=== PATIENT | female | born 1960 | race Two or more races ===

== ENCOUNTER 2016-10-25 19:29 | Emergency (ER) | payer OTHER ==
[2016-10-25] MEDS ORDERED: HYDROcodone/ACETAMIN 5-325 MG* 1 TAB PO ONE (20:55)
--- NOTE | 2016-10-25 21:08 | ED ---
Throat Pain/Nasal Congestion - HPI Summary HPI Summary: Pt here w/ Lt sided otalgia. Started yesterday - worse today. Was in the windy weather and thinks this may have triggered her pain. Denies trauma or URI sx ( ie. sneezing, coughing, fever, chills, ST, sinus pain/pressure, rhinorrhea, nasal congestion). Denies jaw pain or trauma to ear, head, face, jaw. No known h /o TMJ and does not believe she grinds her teeth at night. Has not put anything into her ear to itch nor clean it. Denies dental pain, trouble swallowing. Ear pain is worse w/ touching and opening jaw completely. Denies otorrhea. Tried 3 advil which took the edge off but is worried about sleeping tonight d/t pain. - History of Current Complaint Chief Complaint: EDEarPain Time Seen by Provider: 10/25/16 19:56 Hx Obtained From: Patient - speaks Algerian, Family/Flaking Roll Operator - family member, Anya, yolanda - Allergies/Home Medications Allergies/Adverse Reactions: Allergies Allergy/AdvReac Type Severity Reaction Status Date / Time No Known Allergies Allergy Verified 10/25/16 19:41 PMH/Surg Hx/FS Hx/Imm Hx Previously Healthy: Yes Cardiovascular History: Reports: Hx Hypertension - takes lisinopril Respiratory History: Denies: Hx Seasonal Allergies Musculoskeletal History: Denies: Hx Osteoporosis - Cancer History Hx Chemotherapy: Yes Hx Radiation Therapy: Yes Infectious Disease History: No Infectious Disease History: Denies: Traveled Outside the [place] in Last 30 Days - Social History 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 Negative: Dental Pain, Sore Throat, Nasal Discharge Negative: Chest Pain Negative: Shortness Of Breath, Cough Negative: Abdominal Pain, Vomiting, Diarrhea, Nausea Positive: no symptoms reported Musculoskeletal: Other - see HPI Negative: Rash, Bruising Negative: Headache, Weakness, Paresthesia, Numbness Psychological: Normal - concerned All Other Systems Reviewed And Are Negative: Yes Physical Exam Triage Information Reviewed: Yes Vital Signs On Initial Exam: Initial Vitals Temp Pulse Resp BP Pulse Ox 98.9 F 86 20 153/86 99 10/25/16 19:40 10/25/16 19:40 10/25/16 19:40 10/25/16 19:40 10/25/16 19:40 Vital Signs Reviewed: Yes Appearance: Positive: Well-Appearing, No Pain Distress, Well-Nourished Skin: Positive: Warm, Dry - no erythema, no ecchymosis, no lesions Head/Face: Positive: Normal Head/Face Inspection - sinuses NTTP Eyes: Positive: Normal, EOMI, Conjunctiva Clear. Negative: Conjunctiva Inflammed, Discharge ENT: Positive: Hearing grossly normal, Pharynx normal, Nasal congestion - subtle , Other - Rt EAC and TM clear - Lt EAC w/ mild erythema/edema compared to Rt - TM w/ very mild injection of overlying ossicles - no hyperemia, no d/c, no air/ fluid level - tragus is TTP and ear pain is worse w/ mandibular depression - no overlying erythema although family member (Anya) thinks pt has some swelling here - no clicking appreciated upon palpation. Negative: Nasal drainage, Tonsillar swelling, Tonsillar exudate, Trismus, Muffled/hoarse voice, Dental tenderness Dental: Negative: Percussion Tenderness @ Neck: Positive: Supple, No Lymphadenopathy, Tenderness @ - palaption of Lt side of neck triggers Lt ear pain Respiratory/Lung Sounds: Positive: Clear to Auscultation, Breath Sounds Present Cardiovascular: Positive: Normal, RRR, S1, S2. Negative: Murmur, Rub Musculoskeletal: Positive: Normal, Strength/ROM Intact Neurological: Positive: Normal, Sensory/Motor Intact, Alert, Oriented to Person Place, Time, CN Intact II-III Psychiatric: Positive: Normal Diagnostics - Vital Signs Vital Signs Temp Pulse Resp BP Pulse Ox 10/25/16 19:40 98.9 F 86 20 153/86 99 - Laboratory Lab Statement: Any lab studies that have been ordered have been reviewed, and results considered in the medical decision making process. EENT Course/Dx - Course Course Of Treatment: Lt TM and EAC appear mildly irritated - cause unknown however pt does have a subtle nasal congestion - suspect she may have some eustachian tube dysfunction as a result. She could also have some TMJ contributing to swelling/congestion. Discussed course of action w/ conservative care first and if sx do not improve, may advance to anbx. Follow-up with PCP this week. Reviewed danger s/sx of when to return to ED. Pt and pt's family Anya agree w/ plan. - Diagnoses Provider Diagnoses: Otalgia of left ear Discharge - Discharge Plan Condition: Stable Disposition: HOME Prescriptions: Amoxicillin/Clavulanate TAB* [Augmentin TAB 875*] 875 mg PO BID #20 tab Patient Education Materials: Earache (ED) Referrals: Alcira Chambers MD [Primary Care Provider] - Additional Instructions: Your Left ear appears irritated. The cause is unknown however you do seem to have a level of upper nasal congestion that may be contributing to eustachian tube dysfunction, a problem with the tube that drains fluid from your ear. If this persists, you may develop an ear infection. You may try saline nasal spray , Afrin nasal spray, salt water throat gargles, humidification, tylenol 650mg and warm compress to help reduce pain and help ear to drain. If this does not improve your ear pain, start antibiotics and follow-up with your PCP. *If you develop headache, fever, chills, difficulty swallowing, balance issues, change in vision, return to ED
[2016-10-25 21:23] VITALS: BP 141/94
== END 2016-10-25 21:22 | disposition home or self-care (01) ==
LOC: ED 19:29
DX: H92.02 Otalgia, left ear (principal); H92.09 Otalgia, unspecified ear
CPT/HCPCS: 99282

== ENCOUNTER 2017-05-01 22:34 | Emergency (ER) | payer OTHER ==
[2017-05-01 22:41] VITALS: BP 173/102
[2017-05-01] MEDS ORDERED: Sulfamethox/Trimethoprim DS 800/160* TAB PO ONE (23:49)
[2017-05-01] MEDS ORDERED: HYDROcodone/ACETAMIN 5-325 MG* 1 TAB PO ONE (23:49)
--- NOTE | 2017-05-01 23:56 | ED ---
Skin Complaint - HPI Summary HPI Summary: Pt here w/ Rt axillary redness, swelling and pain - pt believes she has an infection here as she's had this in the past dx'd in [facility] (staph but not sure which kind). Has had it drained in the past - no records of cx here. She has had this for a few days now - worse. Denies fever, chills but had nausea earlier today - not sure of this was a systemic effect from wound or simply from pain. Tried advil w/o relief. Imms are UTD. H/o having this infection in other areas of her body - most recently had 2 sores on her face that drained purulent material. Was told since she had chemotherapy for breast cancer, her immune system is suppressed. Feels well otherwise. No recent exposures to others w/ illness/wounds/etc. - History of Current Complaint Chief Complaint: EDRashSkinAbscess Time Seen by Provider: 05/01/17 23:33 Stated Complaint: RT UNDERARM PAIN Hx Obtained From: Patient, Family/Hand Singer - family member who translates Pain Intensity: 8 - Allergy/Home Medications Allergies/Adverse Reactions: Allergies Allergy/AdvReac Type Severity Reaction Status Date / Time No Known Allergies Allergy Verified 05/01/17 22:59 Home Medications: Home Medications Albuterol HFA INHALER* [Ventolin HFA Inhaler*] 1 puff INH Q4H PRN 05/01/17 [ History Confirmed 05/01/17] Lisinopril [Zestril 20 MG-] 20 mg PO DAILY 05/01/17 [History Confirmed 05/01/17] PMH/Surg Hx/FS Hx/Imm Hx Previously Healthy: Yes Cardiovascular History: Reports: Hx Hypertension - takes lisinopril Respiratory History: Reports: Hx Asthma Denies: Hx Seasonal Allergies Musculoskeletal History: Denies: Hx Osteoporosis - Cancer History Cancer Type, Location and Year: breast cancer - Lt side - surgically extracted ( details unknown) Hx Chemotherapy: Yes Hx Radiation Therapy: Yes - Immunization History Date of Tetanus Vaccine: unk Date of Influenza Vaccine: none Immunizations Up to Date: Yes - had them in [facility] Infectious Disease History: Yes Infectious Disease History: Reports: 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"- not sure which kind - dx'd in [facility] Denies: Traveled Outside the [place] in Last 30 Days - Social History 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 Lives: With Family Alcohol Use: None Hx Substance Use: No Substance Use Type: Reports: None Hx Tobacco Use: No Smoking Status (MU): Never Smoked Tobacco Review of Systems Constitutional: Negative Negative: Fever, Chills, Fatigue Negative: Chest Pain Gastrointestinal: Other - see HPI Positive: no symptoms reported Musculoskeletal: Negative Skin: Other - see HPI Neurological: Negative All Other Systems Reviewed And Are Negative: Yes Physical Exam Triage Information Reviewed: Yes Vital Signs On Initial Exam: Initial Vitals Temp Pulse Resp BP Pulse Ox 98 F 92 16 173/102 100 05/01/17 22:39 05/01/17 22:39 05/01/17 22:39 05/01/17 22:39 05/01/17 22:39 Vital Signs Reviewed: Yes Appearance: Positive: Well-Appearing, No Pain Distress, Well-Nourished Skin: Positive: Warm, Dry - focal area of firm erythema with central head/scab in Rt axilla with perpheral erythema of wire mill rover color - TTP - no fluctuance, no drainage. No other lesions on body Head/Face: Positive: Normal Head/Face Inspection Eyes: Positive: EOMI ENT: Positive: Hearing grossly normal Respiratory/Lung Sounds: Positive: Breath Sounds Present Cardiovascular: Positive: Normal Musculoskeletal: Positive: Normal, Strength/ROM Intact Neurological: Positive: Normal, Sensory/Motor Intact, Alert, Oriented to Person Place, Time, CN Intact II-III Psychiatric: Positive: Normal - [place] Coma Scale Coma Scale Total: 15 Procedures - Incision and Drainage Site: Rt axilla Anesthesia: Local, Lidocaine Instrument(s): Scalpel - #11 - 1cc purulent drainage Packing: Gauze Diagnostics - Vital Signs Vital Signs Temp Pulse Resp BP Pulse Ox 05/01/17 22:39 98 F 92 16 173/102 100 - Laboratory Lab Statement: Any lab studies that have been ordered have been reviewed, and results considered in the medical decision making process. Re-Evaluation - Re-Evaluation First Eval Change: Improved - s/p heat and norco Course/Dx - Diagnoses Provider Diagnoses: Abscess of right axilla Discharge - Discharge Plan Condition: Stable Disposition: HOME Prescriptions: HYDROcodone/ACETAMIN 5-325 MG* [Correll 5-325 TAB*] 1 tab PO Q6H PRN #12 tab MDD 4 PRN Reason: Pain Ibuprofen TAB* [Motrin TAB* 600 MG] 600 mg PO Q6H PRN #20 tab PRN Reason: Pain Sulfamethox/Trimethoprim DS* [Bactrim DS 800/160 TAB*] 1 tab PO BID #19 tab Patient Education Materials: Incision and Drainage (ED) Referrals: Alcira Chambers MD [Primary Care Provider] - Additional Instructions: Keep dressing in place until Wednesday - follow-up with PCP this day. If you cannot make an appointment then, remove dressing and remove packing. Gently wash with soap and water - rinse well and pat dry with clean cloth then cover with clean gauze and rewrap. You may use a heat pack to help with pain and draw infection out of wound. Take antibiotic as directed. Follow-up with PCP for results of drainage collection. You may take ibuprofen and norco for pain. *If you develop streaking, fever, chills, vomiting, return to ED
[2017-05-02] MEDS ORDERED: HYDROcodone/ACETAMIN 5-325 MG* 1 TAB PO ONE (01:57)
== END 2017-05-02 02:18 | disposition home or self-care (01) ==
LOC: ED 22:34
DX: L02.411 Cutaneous abscess of right axilla (principal)
CPT/HCPCS: 87070; 87077; 87186; 87205; 87640; 87641; 99282; A9270-GY

== ENCOUNTER 2018-01-09 22:50 | Observation (INO) | payer OTHER ==
[2018-01-09] MEDS ORDERED: NS 0.9% 1000 ML* 1,000 ML IV ONE (23:04)
[2018-01-09] MEDS ORDERED: Aspirin 81 mg CHEW TAB* 81 MG TAB.CHEW PO ONE (23:04)
[2018-01-09 23:37] LABS: ABS Basophils 0.1 10^3/ul (0-0.2); ABS Eosinophils 0.4 10^3/ul (0-0.6); ABS Lymphocytes 2.2 10^3/ul (1.0-4.8); ABS Monocytes 0.6 10^3/ul (0-0.8); ABS Nucleated RBC 0 10^3/ul; Eosinophil % 6.3 % (0-6); Hematocrit 41 % (35-47); Hemoglobin 13.8 g/dl (12.0-16.0); Mean Corpuscular HGB Conc 34 g/dl (31-36); Mean Corpuscular Hemoglobin 31 pg (27-31); Mean Corpuscular Volume 90 fL (80-97); Nucleated Red Blood Cells % 0; Platelet Count 200 10^3/ul (150-450); Red Blood Count 4.49 10^6/ul (4.0-5.4); Red Cell Distribution Width 13 % (10.5-15); White Blood Count 6.2 10^3/ul (3.5-10.8)
[2018-01-09 23:45] LABS: INR 0.9 (0.77-1.02)
[2018-01-09] MEDS ORDERED: Metoprolol Tartrate IV* 1 MG/ML 5 ML VIAL IV ONE (23:45)
[2018-01-09] MEDS ORDERED: Nitroglycerin 2% OINT* 1 GM PAK TOPICAL ONE (23:45)
[2018-01-09 23:48] LABS: EGFR Non-African American 51.6 (>60)
[2018-01-10] MEDS ORDERED: Ondansetron INJ* 2 MG/ML VIAL IV PRN (03:18)
[2018-01-10] MEDS ORDERED: Albuterol 2.5 MG/3 ML NEB.SOL* (0.083%) INH PRN (03:18)
[2018-01-10] MEDS ORDERED: Morphine INJ* 2 MG/ML 1 ML CARPUJECT IV PRN (03:18)
[2018-01-10] MEDS ORDERED: Acetaminophen TAB* 325 MG PO PRN (03:18)
--- NOTE | 2018-01-10 03:25 | HP ---
H&P (Free Text) History and Physical: PCP: Tara Chambers MD Oncology: Epifanio Nash MD Date/Time: 01/10/2018314 CC: chest pain HPI: Mrs Garcias is a 57YO Chilean speaking female HX HTN, asthma, & breast CA who presented with initially pressure-like becoming sharp L chest pain radiating to the L scapula associated with SOB, nausea, & sweating, but no palpitations or light-headedness. She denies F/C, cough, congestion, or change in bowel/bladder. She took an nitro tablet which improved her symptoms. She reports having a similar episode which was similarly relieved with nitro SL. She is currently symptom-free. PMedHx HTN asthma L breast CA Ambulatory Orders Nursing to reconcile. Albuterol HFA INHALER* [Ventolin HFA Inhaler*] 1 puff INH Q4H PRN 05/01/17 Lisinopril [Zestril 20 MG-] 20 mg PO DAILY 05/01/17 HYDROcodone/ACETAMIN 5-325 MG* [Pullman 5-325 TAB*] 1 tab PO Q6H PRN #12 tab MDD 4 05/02/17 Ibuprofen TAB* [Motrin TAB* 600 MG] 600 mg PO Q6H PRN #20 tab 05/02/17 Sulfamethox/Trimethoprim DS* [Bactrim DS 800/160 TAB*] 1 tab PO BID #19 tab Allergies No Known Allergies Allergy (Verified 01/09/18 22:58) PSurgHx L lumpectomy w/ axillary lymph-node dissection appendectomy SocHx: no tobacco, alcohol, or recreational drugs; , lives alone in an apartment; full code status FamHx: negative for early onset CAD/CVA/PVD ROS: as above, otherwise reviewed and all were negative vitals: Vital Signs Temp 37.0 C 01/10/18 05:00 Pulse 75 01/10/18 05:00 Resp 19 01/10/18 05:00 BP 104/67 01/10/18 05:00 Pulse Ox 96 01/10/18 05:00 Intake & Output 01/09/18 01/09/18 01/10/18 11:59 23:59 11:59 Intake Total 1000 Balance 1000 Weight 74 kg Intake: IV Fluids 1000 Oral 0 Other: # Bowel Movements 0 # Voids 800 Constitutional: NAD, normally developed, overweight female HEENM: atraumatic; sclera/conjunctiva: anicteric/clear; hearing: clinically intact; oropharynx: clear, moist Neck: soft tissue: non-tender; thyroid: normal Pulmonary: clear to auscultation bilaterally, good aeration, no accessory muscle use CV: RR/RR, normal S1S2, no carotid bruit, no jugular venous distention, 2+ B DP/ PT, no edema Abdominal: soft, non-distended, non-tender, no rebound/guarding/rigidity, normoactive bowel sounds, no hepatosplenomegaly or masses, no costovertebral angle tenderness Musculoskeletal: general: grossly intact, no tenderness w/ palpation Integumental: normal appearance and texture of exposed skin Psychiatric orientation: AA&O to PPS affect: calm mood: cooperative eye contact: good content: seemingly reliable responses: non-Yakut speaking, daughter translates insight: fair Testing: Lab Results 01/09/18 01/09/18 01/09/18 Range/Units 23:05 23:05 23:05 WBC (3.5-10.8) 10^3/ul RBC (4.0-5.4) 10^6/ul Hgb (12.0-16.0) g/dl Hct (35-47) % MCV (80-97) fL MCH (27-31) pg MCHC (31-36) g/dl RDW (10.5-15) % Plt Count (150-450) 10^3/ul MPV (7.4-10.4) um3 Neut % (Auto) (38-83) % Lymph % (Auto) (25-47) % Dent % (Auto) (0-7) % Eos % (Auto) (0-6) % Baso % (Auto) (0-2) % Absolute Neuts (auto) (1.5-7.7) 10^3/ul Absolute Lymphs (auto) (1.0-4.8) 10^3/ul Absolute Monos (auto) (0-0.8) 10^3/ul Absolute Eos (auto) (0-0.6) 10^3/ul Absolute Basos (auto) (0-0.2) 10^3/ul Absolute Nucleated RBC 10^3/ul Nucleated RBC % INR (Anticoag Therapy) (0.77-1.02) APTT (26.0-36.3) seconds Sodium 138 L (139-145) mmol/L Potassium 4.1 (3.5-5.0) mmol/L Chloride 108 (101-111) mmol/L Carbon Dioxide 22 (22-32) mmol/L Anion Gap 8 (2-11) mmol/L BUN 24 (6-24) mg/dL Creatinine 1.09 H (0.51-0.95) mg/dL Est GFR ( Amer) 66.3 (>60) Est GFR (Non-Af Amer) 51.6 (>60) BUN/Creatinine Ratio 22.0 H (8-20) Glucose 118 H (70-100) mg/dL Lactic Acid 1.1 (0.5-2.0) mmol/L Calcium 9.1 (8.6-10.3) mg/dL Total Bilirubin 0.60 (0.2-1.0) mg/dL AST 19 (13-39) U/L ALT 15 (7-52) U/L Alkaline Phosphatase 90 (34-104) U/L Troponin I 0.00 (<0.04) ng/mL B-Natriuretic Peptide 20 ( - 100) pg/mL Total Protein 7.0 (6.4-8.9) g/dL Albumin 4.0 (3.2-5.2) g/dL Globulin 3.0 (2-4) g/dL Albumin/Globulin Ratio 1.3 (1-3) 01/09/18 01/09/18 01/10/18 Range/Units 23:15 23:15 02:01 WBC 6.2 (3.5-10.8) 10^3/ul RBC 4.49 (4.0-5.4) 10^6/ul Hgb 13.8 (12.0-16.0) g/dl Hct 41 (35-47) % MCV 90 (80-97) fL MCH 31 (27-31) pg MCHC 34 (31-36) g/dl RDW 13 (10.5-15) % Plt Count 200 (150-450) 10^3/ul MPV 10.0 (7.4-10.4) um3 Neut % (Auto) 48.1 (38-83) % Lymph % (Auto) 35.0 (25-47) % Dent % (Auto) 9.5 H (0-7) % Eos % (Auto) 6.3 H (0-6) % Baso % (Auto) 1.1 (0-2) % Absolute Neuts (auto) 3.0 (1.5-7.7) 10^3/ul Absolute Lymphs (auto) 2.2 (1.0-4.8) 10^3/ul Absolute Monos (auto) 0.6 (0-0.8) 10^3/ul Absolute Eos (auto) 0.4 (0-0.6) 10^3/ul Absolute Basos (auto) 0.1 (0-0.2) 10^3/ul Absolute Nucleated RBC 0 10^3/ul Nucleated RBC % 0 INR (Anticoag Therapy) 0.90 (0.77-1.02) APTT (26.0-36.3) seconds Sodium (139-145) mmol/L Potassium (3.5-5.0) mmol/L Chloride (101-111) mmol/L Carbon Dioxide (22-32) mmol/L Anion Gap (2-11) mmol/L BUN (6-24) mg/dL Creatinine (0.51-0.95) mg/dL Est GFR ( Amer) (>60) Est GFR (Non-Af Amer) (>60) BUN/Creatinine Ratio (8-20) Glucose (70-100) mg/dL Lactic Acid (0.5-2.0) mmol/L Calcium (8.6-10.3) mg/dL Total Bilirubin (0.2-1.0) mg/dL AST (13-39) U/L ALT (7-52) U/L Alkaline Phosphatase (34-104) U/L Troponin I 0.00 (<0.04) ng/mL B-Natriuretic Peptide ( - 100) pg/mL Total Protein (6.4-8.9) g/dL Albumin (3.2-5.2) g/dL Globulin (2-4) g/dL Albumin/Globulin Ratio (1-3) 01/10/18 01/10/18 Range/Units 05:59 05:59 WBC (3.5-10.8) 10^3/ul RBC (4.0-5.4) 10^6/ul Hgb (12.0-16.0) g/dl Hct (35-47) % MCV (80-97) fL MCH (27-31) pg MCHC (31-36) g/dl RDW (10.5-15) % Plt Count (150-450) 10^3/ul MPV (7.4-10.4) um3 Neut % (Auto) (38-83) % Lymph % (Auto) (25-47) % Dent % (Auto) (0-7) % Eos % (Auto) (0-6) % Baso % (Auto) (0-2) % Absolute Neuts (auto) (1.5-7.7) 10^3/ul Absolute Lymphs (auto) (1.0-4.8) 10^3/ul Absolute Monos (auto) (0-0.8) 10^3/ul Absolute Eos (auto) (0-0.6) 10^3/ul Absolute Basos (auto) (0-0.2) 10^3/ul Absolute Nucleated RBC 10^3/ul Nucleated RBC % INR (Anticoag Therapy) (0.77-1.02) APTT 25.6 L (26.0-36.3) seconds Sodium 139 (139-145) mmol/L Potassium 4.0 (3.5-5.0) mmol/L Chloride 111 (101-111) mmol/L Carbon Dioxide 22 (22-32) mmol/L Anion Gap 6 (2-11) mmol/L BUN 19 (6-24) mg/dL Creatinine 0.84 (0.51-0.95) mg/dL Est GFR ( Amer) 89.6 (>60) Est GFR (Non-Af Amer) 69.6 (>60) BUN/Creatinine Ratio 22.6 H (8-20) Glucose 106 H (70-100) mg/dL Lactic Acid (0.5-2.0) mmol/L Calcium 8.9 (8.6-10.3) mg/dL Total Bilirubin (0.2-1.0) mg/dL AST (13-39) U/L ALT (7-52) U/L Alkaline Phosphatase (34-104) U/L Troponin I 0.00 (<0.04) ng/mL B-Natriuretic Peptide ( - 100) pg/mL Total Protein (6.4-8.9) g/dL Albumin (3.2-5.2) g/dL Globulin (2-4) g/dL Albumin/Globulin Ratio (1-3) ECG, personally reviewed: NSR rate 82, no ischemia CXR, personally reviewed: no acute process Impression: 57YO Chilean speaking female HX HTN, asthma, & breast CA presents with chest pain for r/o ACS DIAGNOSIS & PLAN Primary chest pain r/o ACS : telemetry : trend troponin : aspirin given in ED : exercise NST in AM : supplemental oxygen : supportive care Secondary HTN : review meds once reconciled asthma : albuterol PRN HX L breast CA : continue outpatient surveillance Admission Rational: observation for r/o ACS DVTp: heparin SQ Code Status: full HCP: daughter, Anya Landon
[2018-01-10] MEDS ORDERED: NS 0.9% 1000 ML* 1,000 ML IV SCH (03:30)
--- NOTE | 2018-01-10 04:32 | ED ---
Melchor Dia Nikita, scribed for Raffaele Herrera MD on 01/09/18 at 2344 . HPI Chest Pain - HPI Summary HPI Summary: This patient is a 57 year old F presenting to ED with a chief complaint of L- sided CP since a few hours ago. The CC is described as intermittent for the past week, sharp, and radiating to the top of the shoulder and slightly on the arm. The patient rates the pain 5/10 in severity. Symptoms aggravated by nothing. Symptoms alleviated slightly by 1 SL Nitro (a bit , rx given in [place]). Patient reports difficulty breathing (currently resolved). The patient had one episode previously in [facility]. - History of Current Complaint Chief Complaint: EDChestPainROMI Hx Obtained From: Patient Onset/Duration: Started Hours Ago, Resolved Timing: Intermittent, Lasting Weeks - the past week Initial Severity: Moderate Pain Intensity: 5 Pain Scale Used: 0-10 Numeric Chest Pain Radiates: Yes Chest Pain Radiates To:: Shoulder - back of shoulder, Arm - slightly Character: Sharp/Stabbing Aggravating Factor(s): Nothing Alleviating Factor(s): Other: - 1 SL Nitro (a bit , rx given in [facility]) Associated Signs and Symptoms: Positive: Other: - Patient reports difficulty breathing (currently resolved). - Allergy/Home Medications Allergies/Adverse Reactions: Allergies Allergy/AdvReac Type Severity Reaction Status Date / Time No Known Allergies Allergy Verified 01/09/18 22:58 PMH/Surg Hx/FS Hx/Imm Hx Cardiovascular History: Reports: Hx Hypertension - takes lisinopril, Hx Myocardial Infarction Respiratory History: Reports: Hx Asthma Denies: Hx Seasonal Allergies Musculoskeletal History: Denies: Hx Osteoporosis - Cancer History Cancer Type, Location and Year: breast cancer - Lt side - surgically extracted ( details unknown) Hx Chemotherapy: Yes Hx Radiation Therapy: Yes - Immunization History Date of Tetanus Vaccine: unk Date of Influenza Vaccine: none Infectious Disease History: No Infectious Disease History: Reports: 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 - Social History Alcohol Use: None Hx Substance Use: No Substance Use Type: Reports: None Hx Tobacco Use: No Smoking Status (MU): Never Smoked Tobacco Review of Systems Positive: Chest Pain - mittent for the past week, sharp, and radiating to the top of the shoulder and slightly on the arm Positive: Other - difficulty breathing (currently resolved) All Other Systems Reviewed And Are Negative: Yes Physical Exam - Summary Physical Exam Summary: Appearance: Well appearing, no pain distress Skin: warm, dry, reflects adequate perfusion, surgical scars on both breasts and axial Head/face: normal Eyes: EOMI, OSCAR ENT: normal Neck: supple, non-tender, no JVD Respiratory: CTA, breath sounds present Cardiovascular: RRR, pulses symmetrical Abdomen: non-tender, soft Bowel Sounds: present Musculoskeletal: Normal, strength/ROM intact, no lower extremity edema Neuro: normal, sensory motor intact, A&Ox3 Triage Information Reviewed: Yes Vital Signs On Initial Exam: Initial Vitals Temp Pulse Resp BP Pulse Ox 97.3 F 82 16 144/86 97 01/09/18 22:56 01/09/18 22:56 01/09/18 22:56 01/09/18 22:56 01/09/18 22:56 Vital Signs Reviewed: Yes Diagnostics - Vital Signs Vital Signs Temp Pulse Resp BP Pulse Ox 01/09/18 22:56 97.3 F 82 16 144/86 97 - Laboratory Lab Results: Lab Results 01/09/18 01/09/18 01/09/18 Range/Units 23:05 23:05 23:05 WBC (3.5-10.8) 10^3/ul RBC (4.0-5.4) 10^6/ul Hgb (12.0-16.0) g/dl Hct (35-47) % MCV (80-97) fL MCH (27-31) pg MCHC (31-36) g/dl RDW (10.5-15) % Plt Count (150-450) 10^3/ul MPV (7.4-10.4) um3 Neut % (Auto) (38-83) % Lymph % (Auto) (25-47) % Erie % (Auto) (0-7) % Eos % (Auto) (0-6) % Baso % (Auto) (0-2) % Absolute Neuts (auto) (1.5-7.7) 10^3/ul Absolute Lymphs (auto) (1.0-4.8) 10^3/ul Absolute Monos (auto) (0-0.8) 10^3/ul Absolute Eos (auto) (0-0.6) 10^3/ul Absolute Basos (auto) (0-0.2) 10^3/ul Absolute Nucleated RBC 10^3/ul Nucleated RBC % INR (Anticoag Therapy) (0.77-1.02) Sodium 138 L (139-145) mmol/L Potassium 4.1 (3.5-5.0) mmol/L Chloride 108 (101-111) mmol/L Carbon Dioxide 22 (22-32) mmol/L Anion Gap 8 (2-11) mmol/L BUN 24 (6-24) mg/dL Creatinine 1.09 H (0.51-0.95) mg/dL Est GFR ( Amer) 66.3 (>60) Est GFR (Non-Af Amer) 51.6 (>60) BUN/Creatinine Ratio 22.0 H (8-20) Glucose 118 H (70-100) mg/dL Lactic Acid 1.1 (0.5-2.0) mmol/L Calcium 9.1 (8.6-10.3) mg/dL Total Bilirubin 0.60 (0.2-1.0) mg/dL AST 19 (13-39) U/L ALT 15 (7-52) U/L Alkaline Phosphatase 90 (34-104) U/L Troponin I 0.00 (<0.04) ng/mL B-Natriuretic Peptide 20 ( - 100) pg/mL Total Protein 7.0 (6.4-8.9) g/dL Albumin 4.0 (3.2-5.2) g/dL Globulin 3.0 (2-4) g/dL Albumin/Globulin Ratio 1.3 (1-3) 01/09/18 01/09/18 01/10/18 Range/Units 23:15 23:15 02:01 WBC 6.2 (3.5-10.8) 10^3/ul RBC 4.49 (4.0-5.4) 10^6/ul Hgb 13.8 (12.0-16.0) g/dl Hct 41 (35-47) % MCV 90 (80-97) fL MCH 31 (27-31) pg MCHC 34 (31-36) g/dl RDW 13 (10.5-15) % Plt Count 200 (150-450) 10^3/ul MPV 10.0 (7.4-10.4) um3 Neut % (Auto) 48.1 (38-83) % Lymph % (Auto) 35.0 (25-47) % Erie % (Auto) 9.5 H (0-7) % Eos % (Auto) 6.3 H (0-6) % Baso % (Auto) 1.1 (0-2) % Absolute Neuts (auto) 3.0 (1.5-7.7) 10^3/ul Absolute Lymphs (auto) 2.2 (1.0-4.8) 10^3/ul Absolute Monos (auto) 0.6 (0-0.8) 10^3/ul Absolute Eos (auto) 0.4 (0-0.6) 10^3/ul Absolute Basos (auto) 0.1 (0-0.2) 10^3/ul Absolute Nucleated RBC 0 10^3/ul Nucleated RBC % 0 INR (Anticoag Therapy) 0.90 (0.77-1.02) Sodium (139-145) mmol/L Potassium (3.5-5.0) mmol/L Chloride (101-111) mmol/L Carbon Dioxide (22-32) mmol/L Anion Gap (2-11) mmol/L BUN (6-24) mg/dL Creatinine (0.51-0.95) mg/dL Est GFR ( Amer) (>60) Est GFR (Non-Af Amer) (>60) BUN/Creatinine Ratio (8-20) Glucose (70-100) mg/dL Lactic Acid (0.5-2.0) mmol/L Calcium (8.6-10.3) mg/dL Total Bilirubin (0.2-1.0) mg/dL AST (13-39) U/L ALT (7-52) U/L Alkaline Phosphatase (34-104) U/L Troponin I 0.00 (<0.04) ng/mL B-Natriuretic Peptide ( - 100) pg/mL Total Protein (6.4-8.9) g/dL Albumin (3.2-5.2) g/dL Globulin (2-4) g/dL Albumin/Globulin Ratio (1-3) Result Diagrams: 01/09/18 23:15 01/09/18 23:05 Lab Statement: Any lab studies that have been ordered have been reviewed, and results considered in the medical decision making process. - Radiology CXR Radiology Interpretation Completed By: ED Physician - No acute findings - EKG 2247 Cardiac Rate: NL - 82 bpm EKG Rhythm: Sinus Rhythm ST Segment: Normal EKG Interpretation: Normal axis, Normal intervals Chest Pain Course/Dx - Course Course Of Treatment: chest pain relieved by nitro at home. Jamie CP here. 1st EKG and trop neg. Will require admission and formal rule out. - Chest Pain Differential Diagnosis/HQI/PQRI: ACS, CHF, Lower Respiratory Infection, Pulmonary Embolism, Other: - CP - Diagnoses Provider Diagnoses: ACS (acute coronary syndrome), Chest pain - Provider Notifications Discussed Care Of Patient With: Gamaliel Titus Time Discussed With Above Provider: 00:40 Instructed by Provider To: Other - Consulted Dr. Titus who accepts the patient for admission. Discharge - Sign-Out/Discharge Documenting (check all that apply): Discharge - Discharge Plan Condition: Fair Disposition: ADMITTED TO [facility] - Billing Disposition and Condition Condition: FAIR [place] [facility] [place] The documentation as recorded by the Melchor resendiz Nikita accurately reflects the service I personally performed and the decisions made by Javier liao Kirk, MD.
[2018-01-10] MEDS ORDERED: Omeprazole CAP* 20 MG PO SCH (06:00)
[2018-01-10 06:40] LABS: EGFR Non-African American 69.6 (>60)
--- NOTE | 2018-01-10 07:47 | RAD ---
HISTORY: Chest pain COMPARISONS: None VIEWS: 1: frontal portable view of the chest at 11:10 AM FINDINGS: LINES AND TUBES: None. CARDIOMEDIASTINAL SILHOUETTE: The cardiomediastinal silhouette is normal for portable technique. PLEURA: The costophrenic angles are sharp. No pleural abnormalities are noted. LUNG PARENCHYMA: The lungs are clear. ABDOMEN: The upper abdomen is clear. There is no subphrenic gas. BONES AND SOFT TISSUES: No bone or soft tissue abnormalities are noted. IMPRESSION: NO ACTIVE CARDIOPULMONARY DISEASE.
[2018-01-10] MEDS ORDERED: Docusate CAP* 100 MG PO SCH (09:00)
--- NOTE | 2018-01-10 14:02 | RAD ---
Edited for charges. INDICATION: Chest pain in a woman with a history of hypertension, obesity and positive family history of heart disease COMPARISON: Chest x-ray dated January 09, 2018 TECHNIQUE: SPECT imaging was performed. Rest images were acquired following the intravenous injection of 10.9 millicuries of technetium 99m tetrofosmin at 930 hours. At 1156 hours stress images were acquired following the intravenous administration of 25.2 millicuries of technetium 99m tetrofosmin. Maximum heart rate of 151 bpm was achieved. FINDINGS: There are no defects of the stress-induced or fixed nature. The cardiac chamber size is normal. There are no wall motion abnormalities. The ejection fraction is calculated at 78% during stress. IMPRESSION: No scintigraphic evidence of ischemia or infarction. ASSESSMENT: Low risk Based on imaging criteria from ACC/AHA 2002 Guideline Update for the Management of Patients With Chronic Stable Angina Table 23. Noninvasive Risk Stratification. MTDD
[2018-01-10 15:35] VITALS: BP 133/88
--- NOTE | 2018-01-10 16:50 | PN ---
Subjective Date of Service: 01/10/18 Interval History: Patient seen and examined at bedside. Denies fever, chills, shortness of breath , chest discomfort, N/V/D. Pt states that she doesn't feel like the discomfort was indigestion. She is requesting to have a new prescription for nitro. Pt's daughter acted an an software lead. Tele: Sinus rhythm, rate 60-80's Family History: Unchanged from Admission Social History: Unchanged from Admission Past Medical History: Unchanged from Admission Objective Active Medications: Acetaminophen (Tylenol Tab*) 650 mg PO Q6H PRN Reason: FEVER/PAIN Albuterol (Ventolin 2.5 Mg/3 Ml Neb.Duyen*) 2.5 mg INH Q2H PRN Reason: SOB/ WHEEZING Docusate Sodium (Colace Cap*) 200 mg PO BID BRUNA Heparin Sodium (Porcine) (Heparin Vial(*)) 5,000 units SUBCUT Q8HR BRUNA Sodium Chloride (Ns 0.9% 1000 Ml*) 1,000 mls @ 50 mls/hr IV PER RATE BRUNA Morphine Sulfate (Morphine Inj (Syringe)*) 1 mg IV Q4H PRN Reason: PAIN - MILD Omeprazole (Prilosec Cap*) 20 mg PO DAILY@0600 BRUNA Ondansetron HCl (Zofran Inj*) 4 mg IV Q6H PRN Reason: NAUSEA Vital Signs - 8 hr 01/10/18 15:22 Temperature 98.6 F Pulse Rate 85 Respiratory 16 Rate Blood Pressure 133/88 (mmHg) O2 Sat by Pulse 98 Oximetry Oxygen Devices in Use Now: None Appearance: NAD, sitting up in bed Ears/Nose/Mouth/Throat: Mucous Membranes Moist Respiratory: Symmetrical Chest Expansion and Respiratory Effort, Clear to Auscultation Cardiovascular: NL Sounds; No Murmurs; No JVD, RRR, - - Chest pain non- reproducible with palpation Abdominal: NL Sounds; No Tenderness; No Distention Extremities: No Edema Skin: No Rash or Ulcers Neurological: Alert and Oriented x 3, NL Muscle Strength and Tone Lines/Tubes/Other Access: Clean, Dry and Intact Peripheral IV - site benign Nutrition: Taking PO's Result Diagrams: 01/09/18 23:15 01/10/18 05:59 Additional Lab and Data: Assess/Plan/Problems-Billing Assessment: Ms. Garcias is a 57 yo female with PMH significant for HTN, asthma, and left breast cancer who presented to the emergency room with complaints of chest pain. - Patient Problems (1) Chest pain Code(s): R07.9 - CHEST PAIN, UNSPECIFIED SNOMED Code(s): 42652779 Comment: - Resolved - Low risk stress test - Troponin 0.00 x3 (2) HTN (hypertension) Code(s): I10 - ESSENTIAL (PRIMARY) HYPERTENSION SNOMED Code(s): 77874890 Comment: - SBP 110-130's - Continue lisinopril (3) Asthma Code(s): J45.909 - UNSPECIFIED ASTHMA, UNCOMPLICATED SNOMED Code(s): 009857354 Comment: - No acute exacerbation at this time - Continue albuterol PRN (4) Breast cancer Code(s): C50.919 - MALIGNANT NEOPLASM OF UNSP SITE OF UNSPECIFIED FEMALE BREAST SNOMED Code(s): 038032927 Comment: - Continue outpatient surveillance (5) DVT prophylaxis Code(s): HPO6915 - SNOMED Code(s): 262952325 Comment: (6) Full code status Code(s): Z78.9 - OTHER SPECIFIED HEALTH STATUS SNOMED Code(s): 044686735 Status and Disposition: OBV. Stable for discharge to home today.
--- NOTE | 2018-01-11 01:26 | DS ---
CC: Alcira Chambers MD* DISCHARGE SUMMARY: DATE OF ADMISSION: 01/10/18 DATE OF DISCHARGE: 01/10/18 ATTENDING PHYSICIAN: Kiana Adams MD* (dictated by Philip Vicente NP) PRIMARY DIAGNOSIS: Chest pain, suspect noncardiac in nature. SECONDARY DIAGNOSES: 1. Hypertension. 2. Asthma. 3. Left breast cancer. STUDIES WHILE IN THE HOSPITAL: Nuclear exercise stress test on 01/10/18. Assessment: Low risk. Impression: No scintigraphic evidence of ischemia or infarction. DISCHARGE MEDICATIONS: New home medications: Acetaminophen 650 mg oral every 6 hours as needed for fever or pain. Continued home medications: 1. Nitroglycerin 0.4 mg sublingual every 5 minutes as needed for chest pain. 2. Albuterol HFA inhaler 1 puff inhalation every 4 hours as needed for shortness of breath or wheeze. 3. Lisinopril 20 mg oral daily. 4. Ibuprofen 600 mg oral every 6 hours as needed for pain. HISTORY OF PRESENT ILLNESS/HOSPITAL COURSE: Ms. Garcias is a 57-year-old female with past medical history significant for hypertension, asthma, and breast cancer who presented to the emergency room with complaints of chest pain. The patient states that she developed pressure like chest pain that became sharp left chest pain radiating to her left scapula with associated shortness of breath, nausea and sweating. The patient had no palpitations or lightheadedness. She denied any fevers, chills, cough, congestion or change in her bowel or bladder. The patient took nitro tab, which improved her symptoms. The patient reported similar episodes previously on of last week and took the nitro which relieved her symptoms at that time. Due to her symptoms, she presented to the emergency room for further evaluation of her symptoms. While in the emergency room, the patient had labs. Her initial troponin was 0.00. She had an EKG with no acute signs of ischemia. She had a chest x-ray with no acute disease noted, and hospitalists were asked to evaluate the patient for admission. While in the hospital, the patient was monitored on telemetry, no events were found. Her troponins were trended and flat at 0.00. The patient's chest pain had been resolved during her entire stay. She underwent a nuclear exercise stress test showing a low risk and it was felt that she was ready for discharge to home. Ms. Garcias is stable for discharge to home. Vital signs are as follows: Temperature 98.6, heart rate 85, respiratory rate 16, O2 sat 98% on room air, blood pressure 133/88. DISCHARGE PLAN: Ms. Garcias will be discharged to home. Activity as tolerated. She will be on a heart healthy diet. In regards to her chest pain, I suspect this is noncardiac in nature. She has had a negative chest x-ray. I offered to send her home with a trial of Prilosec as I suspect indigestion could be playing a role in this and she declined. She asked for me to send her in a new prescription for nitroglycerin, which I have done. Her blood pressures have been controlled. She has been continued on her home lisinopril. The patient has a followup appointment with her primary care provider, Dr. Chambers, on 01/18/18 at 2:40 p.m. The patient has been asked to return to the emergency room for any chest pain, shortness of breath. This is a summarized report of a complex medical history and hospital stay. For further details, please see the entire medical record. TIME SPENT: Time for this discharge was approximately 50 minutes, greater than half of that was spent with the patient and her daughter discussing discharge plans and instructions. CONDITION ON DISCHARGE: Stable. PHILIP VICENTE, JUAN [id number]/[facility] #: [id number] JARON
[2018-01-11] MEDS ORDERED: Heparin VIAL(*) 5000 UNITS/ML VIAL (FIVE THOUSAND) SUBCUT SCH (06:00)
== END 2018-01-10 17:51 | disposition home or self-care (01) ==
LOC: ED 22:50 → MEDTELE 01-10 03:16
PROVIDERS: ADMIT Hospitalist; ATTEND Internal Medicine
DX: R07.9 Chest pain, unspecified (principal); I10 Essential (primary) hypertension; J45.909 Unspecified asthma, uncomplicated; Z85.3 Personal history of malignant neoplasm of breast; R06.02 Shortness of breath; Z79.899 Other long term (current) drug therapy
CPT/HCPCS: 36415; 71045; 78452; 80048; 80053; 83605; 83880; 84484; 85025; 85610; 85730; 93005; 93017; 96361; 96374; 99284; A9270-GY; A9502; G0378; J3490